=== PATIENT | male | born 1985 | race Caucasian/White ===

== ENCOUNTER 2016-12-24 20:01 | Emergency (ER) | payer MEDICAID ==
[2016-12-24 20:29] LABS: % BASOPHILS 0.7 % (0.0-2.0); % EOSINOPHILS 3.9 % (0.0-5.0); % LYMPHOCYTES 25.3 % (20.0-50.0); % MONOCYTES 8.3 % (2.0-10.0); % NEUTROPHILS 61.8 % (40.0-80.0); HEMATOCRIT 47.8 % (39.0-49.0); HEMOGLOBIN 15.8 gm/dL (13.2-17.3); MEAN CELL VOLUME 88.7 fl (80-99); MEAN CORPUSCULAR HEMOGLOBIN 29.3 pg (26.0-30.0); MEAN PLATELET VOLUME 7.8 fl; NEUTROPHILE ABSOLUTE 6.2 Th/cmm (1.8-8.0); PLATELET COUNT 332 Th/cmm (150-400); RED BLOOD COUNT 5.39 Mil/cmm (4.30-5.70); RED CELL DISTRIBUTION WIDTH 12.1 % (11.5-20.0)
[2016-12-24] MEDS ORDERED: Pantoprazole 40 mg EC Tab PO STA (20:40)
--- NOTE | 2016-12-24 20:43 | ED Physician Chart ---
Chief Complaint/HPI - Patient Information Date Seen:: 12/24/16 Time Seen:: 20:30 Chief Complaint:: CHEST PAIN History of Present Illness:: THIS IS A 31 YO HOMOSEXUAL MALE WITH THE SUDDEN ONSET OF CHEST PAIN, NON- RADIATING ON THE LEFT SIDE ASSOCIATED WITH SOB. HE ALSO IS CONCERNED ABOUT THE LEFT CHEST WALL TENDERNESS. HE DENIES FEVER COUGH AND ASTHMA. HE DENIES SMOKING ,DRUGS AND DRINKING. HE DENIES HEART DISEASE, HYPERTENSION AND DIABETES. Allergies:: Allergies Allergy/AdvReac Type Severity Reaction Status Date / Time No Known Allergies Allergy Verified 12/24/16 20:32 Vitals:: Vital Signs - 8 hr 12/24/16 20:20 Temp 97.8 F HR 74 RR 20 BP 147/94 O2 Sat % 99 Historian:: Patient Review:: Nurse's Note Reviewed Review of Systems - Review of Systems General/Constitutional: No fever, No chills, No weight loss, No weakness, No diaphoresis, No edema, No loss of appetite Skin: No skin lesions, No rash, No bruising Head: No headache, No light-headedness Eyes: No loss of vision, No pain, No diplopia ENT: No earache, No nasal drainage, No sore throat, No tinnitus Neck: No neck pain, No swelling, No thyromegaly, No stiffness, No mass noted Cardio Vascular: Chest pain, No palpitations, No PND, No orthopnea, No edema Pulmonary: SOB, No cough, No sputum, No wheezing GI: Nausea, Vomiting, No diarrhea, No pain, No melena, No hematochezia, No constipation, No hematemesis G/U: No dysuria, No frequency, No hematuria Musculoskeletal: No bone or joint pain, No back pain, No muscle pain Endocrine: No polyuria, No polydipsia Psychiatric: No prior psych history, No depression, No anxiety, No suicidal ideation Hematopoietic: No bruising, No lymphadenopathy Allergic/Immuno: No urticaria, No angioedema Neurological: No syncope, No focal symptoms, No weakness, No paresthesia, No headache, No seizure, No dizziness, No confusion, No vertigo Past Medical History - Past Medical History Obtainable: No Past Medical History: CAD Family History: None Social History: Non Smoker, No Alcohol, No Drug Use Surgical History: None Psychiatricy History: None Medication: Reviewed Family Medical History - Family Member Mother History Unknown: Yes Ethnicity: Physical Exam - Physical Examination General/Constitutional: Awake, Well-developed, well-nourished, Alert, No distress, GCS 15, Non-toxic appearing, Ambulatory Head: Atraumatic Eyes: Lids, conjuctiva normal, PERRL, EOMI Skin: Nl inspection, No rash, No skin lesions, No ecchymosis, Well hydrated, No lymphadenopathy ENMT: External ears, nose nl, Nasal exam nl, Lips, teeth, gums nl Neck: Nontender, Full ROM w/o pain, No JVD, No nuchal rigidity, No bruit, No mass, No stridor Respiratory: Nl effort/Exclusion, Clear to Auscultation, No Wheeze/Rhonchi/Rales Other Respiratory comments:: CHEST WALL TENDERNESS ON THE LEFT SIDE Cardio Vascular: RRR, No murmur, gallop, rubs, NL S1 S2 GI: No tenderness/rebounding/guarding, No organomegaly, No hernia, Normal BS's, Nondistended, No mass/bruits, No McBurney tenderness : No CVA tenderness Extremities: No tenderness or effusion, Full ROM, normal strength in all extremities, No edema, Normal digits & nails Neuro/Psych: Alert/oriented, DTR's symmetric, Normal sensory exam, Normal motor strength, Judgement/insight normal, Mood normal, Normal gait, No focal deficits Misc: normal gait, Normal back, No paraspinal tenderness Labs/Radiology/EKG Results - Lab Results Results: Laboratory Tests 12/24/16 20:21 WBC 10.0 RBC 5.39 Hgb 15.8 Hct 47.8 MCV 88.7 MCH 29.3 MCHC Differential 33.0 RDW 12.1 Plt Count 332 MPV 7.8 Neutrophils % 61.8 Lymphocytes % 25.3 Monocytes % 8.3 Eosinophils % 3.9 Basophils % 0.7 Abnormal Lab Results 12/24/16 12/24/16 12/24/16 20:21 20:21 20:21 WBC 10.0 RBC 5.39 Hgb 15.8 Hct 47.8 MCV 88.7 MCH 29.3 MCHC Differential 33.0 RDW 12.1 Plt Count 332 MPV 7.8 Neutrophils % 61.8 Lymphocytes % 25.3 Monocytes % 8.3 Eosinophils % 3.9 Basophils % 0.7 Sodium 135 L Potassium 3.3 L Chloride 105 Carbon Dioxide 24.7 Anion Gap 8.6 BUN 14 Creatinine 0.9 Est GFR ( Amer) > 60.0 Est GFR (Non-Af Amer) > 60.0 BUN/Creatinine Ratio 15.6 Glucose 157 H Calcium 9.4 Total Bilirubin 0.5 AST 18 ALT 14 Alkaline Phosphatase 67 Creatine Kinase Troponin I Total Protein 7.5 Albumin 4.7 Globulin 2.8 Albumin/Globulin Ratio 1.7 Triglycerides 111 Cholesterol 163 LDL Cholesterol Direct 110 HDL Cholesterol 54 TSH Ethyl Alcohol 12/24/16 12/24/16 12/24/16 20:21 20:21 20:21 WBC RBC Hgb Hct MCV MCH MCHC Differential RDW Plt Count MPV Neutrophils % Lymphocytes % Monocytes % Eosinophils % Basophils % Sodium Potassium Chloride Carbon Dioxide Anion Gap BUN Creatinine Est GFR ( Amer) Est GFR (Non-Af Amer) BUN/Creatinine Ratio Glucose Calcium Total Bilirubin AST ALT Alkaline Phosphatase Creatine Kinase Troponin I < 0.01 L Total Protein Albumin Globulin Albumin/Globulin Ratio Triglycerides Cholesterol LDL Cholesterol Direct HDL Cholesterol TSH 2.29 Ethyl Alcohol < 10 12/24/16 20:21 WBC RBC Hgb Hct MCV MCH MCHC Differential RDW Plt Count MPV Neutrophils % Lymphocytes % Monocytes % Eosinophils % Basophils % Sodium Potassium Chloride Carbon Dioxide Anion Gap BUN Creatinine Est GFR ( Amer) Est GFR (Non-Af Amer) BUN/Creatinine Ratio Glucose Calcium Total Bilirubin AST ALT Alkaline Phosphatase Creatine Kinase 83 Troponin I Total Protein Albumin Globulin Albumin/Globulin Ratio Triglycerides Cholesterol LDL Cholesterol Direct HDL Cholesterol TSH Ethyl Alcohol Assessment - Assessment General Assessment: CHEST WALL PAIN ED Septic Shock - . Is Septic Shock (SBP<90, OR Lactate>4 mmol\L) present?: No - <6hrs of presentation: Vital Signs: Vital Signs - 8 hr 12/24/16 20:20 Temp 97.8 F HR 74 RR 20 BP 147/94 O2 Sat % 99 Reassessment (Disposition) - Reassessment Reassessment Condition:: Improved - Diagnosis Diagnosis:: CHEST WALL PAIN GASTRITIS - Aftercare/Follow up Instructions Aftercare/Follow-Up Instructions:: Counseled pt regarding lab results/diagnosis & need follow up, Refer to Discharge Instructions, Counseled pt & family regarding lab results/diagnosis & need follow up - Patient Disposition Discharge/Transfer:: Home Condition at Disposition:: Improved ED Discharge Plan - Patient Disposition Admit/Discharge/Transfer: PT DISCHARGED HOME Condition at Disposition: Improved
[2016-12-24 20:44] LABS: ALB/GLOB RATIO 1.7 (1.0-1.8); ALKALINE PHOSPHATASE 67 U/L (34-104); ANION GAP 8.6 (7.0-16.0); BILIRUBIN,TOTAL 0.5 mg/dL (0.3-1.0); BUN - UREA NITROGEN 14 mg/dL (7-25); BUN/CREATININE RATIO 15.6; CALCIUM SERUM 9.4 mg/dL (8.6-10.3); CARBON DIOXIDE 24.7 mEq/L (21.0-31.0); CHLORIDE 105 mEq/L (98-107); CREATININE - SERUM 0.9 mg/dL (0.7-1.3); GLUCOSE 157 mg/dL (70-105); POTASSIUM SERUM 3.3 mEq/L (3.5-5.1); SGOT 18 U/L (13-39); SGPT/ALT 14 U/L (7-52); SODIUM SERUM 135 mEq/L (136-145)
[2016-12-24 20:45] LABS: CHOLESTEROL 163 mg/dL (<200); TRIGLYCERIDES 111 mg/dL (<150)
[2016-12-24] MEDS ORDERED: Potassium Chloride Elixir 20 mEq /15 mL UDC PO ONE (21:22)
[2016-12-24] MEDS ORDERED: Pantoprazole 40 mg EC Tab PO ONE (21:23)
--- NOTE | 2016-12-25 10:54 | Diagnostic Imaging Report ---
Portable chest x-ray HISTORY: Pain The heart size is normal. Faint infiltrate noted in the left upper lobe with suggestion of small calcifications suggesting a chronic etiology. Additional small calcified density seen within both lungs. No hilar or mediastinal abnormalities. IMPRESSION: 1. Findings consistent with old inflammatory disease 2. No definite acute abnormalities
== END 2016-12-24 21:55 | disposition home or self-care (01) ==
LOC: ER 20:01
DX: R07.89 Other chest pain (principal); K29.70 Gastritis, unspecified, without bleeding; I25.10 Atherosclerotic heart disease of native coronary artery without angina pectoris
CPT/HCPCS: 99285; 96374; 93005; 71010; 84484; 36415; 84443; 86592; 85025; 80320; 82550; 80053; 80061; J1885; Z7610